=== PATIENT | female | born 1945 | race Caucasian/White ===

== ENCOUNTER 2019-09-30 06:47 | Outpatient (CLI) | payer MEDICARE, OTHER, SELFPAY ==
[2019-09-30 07:44] LABS: Basophils Absolute Auto 0.1 K/mm3 (0.0-0.1); Basophils Percent Auto 0.9 % (0.2-1.2); Eosinophils Absolute Auto 0.3 K/mm3 (0-0.3); Eosinophils Percent Auto 4.8 % (0-4.4); Hematocrit 38.1 % (37.0-47.0); Hemoglobin 12.1 g/dL (12.0-15.0); Immature Granulocyte Absolute 0.02 K/mm3 (0.00-0.031); Immature Granulocyte Percent A 0.3 % (0-0.5); Lymphocytes Absolute Auto 1.39 K/mm3 (0.9-3.2); Lymphocytes Percent Auto 23.7 % (18.3-44.2); Mean Corpuscular HGB Conc 31.8 g/dl (32-36); Mean Corpuscular Hemoglobin 26.9 pg (26-34); Mean Corpuscular Volume 84.7 fl (80-100); Mean Platelet Volume 11.1 fl (7.4-10.4); Monocytes Absolute Auto 0.4 K/mm3 (0.1-0.6); Monocytes Percent Auto 6.8 % (2.6-8.5); Neutrophils Absolute Auto 3.7 K/mm3 (1.3-6.7); Neutrophils Percent Auto 63.5 % (45.5-73.1); Platelet Count Result 225 k/mm3 (150-375); Red Cell Distribution Width 13.5 % (11.5-14.5); White Blood Count 5.9 K/mm3 (4.5-10.0)
[2019-09-30 08:00] LABS: Blood Urea Nitrogen 22 mg/dL (7-17); Calcium 9.1 mg/dL (8.4-10.2); Carbon Dioxide 28 mmol/L (22-30); Chloride 102 mmol/L (98-107); Cholesterol 149 mg/dL (0-200); Estimated Glomerular Filt Rate > 60; Glucose 191 mg/dL (65-105); HDL Direct 49 mg/dL; Potassium 4.4 mmol/L (3.4-5.0); Sodium 139 mmol/L (137-145); Triglycerides 83 mg/dL (<150)
[2019-09-30 08:01] LABS: Hemoglobin A1C 7.8 % (<5.7)
[2019-09-30 08:11] LABS: LDL Cholesterol Direct 91 mg/dL
[2019-09-30 08:33] LABS: Free T4 Free Thyroxine 0.79 ng/mL (0.78-2.19); Vitamin D 25 Hydroxy 49.6 ng/mL
[2019-09-30 10:53] LABS: Creatinine Urine 122.8 mg/dL
[2019-09-30 10:56] LABS: MALB Creatinine Ratio 5.9 mg/g (0-30); Microalbumin Urine Random 7.3 mg/L (0-16.7)
== END 2019-09-30 06:48 | disposition home or self-care (01) ==
PROVIDERS: PCP Internal Medicine; Visit Provider Internal Medicine
DX: I10 Essential (primary) hypertension (principal); E11.9 Type 2 diabetes mellitus without complications; E78.5 Hyperlipidemia, unspecified; E55.9 Vitamin D deficiency, unspecified; Z79.899 Other long term (current) drug therapy
CPT/HCPCS: 36415; 80048; 80061; 82043; 82306; 83036; 84439; 84443; 85025

== ENCOUNTER 2020-02-03 07:30 | Outpatient (CLI) | payer MEDICARE, OTHER, SELFPAY ==
[2020-02-03 08:46] LABS: Blood Urea Nitrogen 20 mg/dL (7-17); Calcium 9.4 mg/dL (8.4-10.2); Carbon Dioxide 30 mmol/L (22-30); Chloride 100 mmol/L (98-107); Cholesterol 133 mg/dL (0-200); Estimated Glomerular Filt Rate > 60; Glucose 141 mg/dL (65-105); HDL Direct 49 mg/dL; Potassium 4.6 mmol/L (3.4-5.0); Sodium 137 mmol/L (137-145); Triglycerides 111 mg/dL (<150)
[2020-02-03 08:57] LABS: LDL Cholesterol Direct 61 mg/dL
== END 2020-02-03 07:31 | disposition home or self-care (01) ==
PROVIDERS: PCP Internal Medicine; Visit Provider Internal Medicine
DX: E78.5 Hyperlipidemia, unspecified (principal); Z79.899 Other long term (current) drug therapy
CPT/HCPCS: 36415; 80048; 80061; 83036; 84439; 84443

== ENCOUNTER 2020-07-07 06:49 | Outpatient (CLI) | payer MEDICARE, OTHER, SELFPAY ==
[2020-07-07 07:21] LABS: Basophils Absolute Auto 0.1 K/mm3 (0.0-0.1); Basophils Percent Auto 0.9 % (0.2-1.2); Eosinophils Absolute Auto 0.2 K/mm3 (0-0.3); Eosinophils Percent Auto 2.6 % (0-4.4); Hematocrit 37.4 % (37.0-47.0); Hemoglobin 11.8 g/dL (12.0-15.0); Immature Granulocyte Absolute 0.03 K/mm3 (0.00-0.031); Immature Granulocyte Percent A 0.4 % (0-0.5); Lymphocytes Absolute Auto 1.82 K/mm3 (0.9-3.2); Lymphocytes Percent Auto 23.7 % (18.3-44.2); Mean Corpuscular HGB Conc 31.6 g/dl (32-36); Mean Corpuscular Volume 82.4 fl (80-100); Mean Platelet Volume 10.9 fl (7.4-10.4); Monocytes Absolute Auto 0.5 K/mm3 (0.1-0.6); Monocytes Percent Auto 6.9 % (2.6-8.5); Neutrophils Percent Auto 65.5 % (45.5-73.1); Platelet Count Result 241 k/mm3 (150-375); Red Blood Count 4.54 M/mm3 (4.2-5.4); Red Cell Distribution Width 14.2 % (11.5-14.5); White Blood Count 7.7 K/mm3 (4.5-10.0)
[2020-07-07 07:34] LABS: Alanine Aminotransferase 48 U/L (4-35); Albumin Level 4.2 g/dL (3.5-5.1); Alkaline Phosphatase 74 U/L (38-126); Anion Gap 7 mmol/L (8-16); Aspartate Amino Transferase 57 U/L (14-36); Bilirubin,Total 0.7 mg/dL (0.2-1.3); Blood Urea Nitrogen 20 mg/dL (7-17); Calcium 9.4 mg/dL (8.4-10.2); Carbon Dioxide 32 mmol/L (22-30); Chloride 99 mmol/L (98-107); Cholesterol 122 mg/dL (0-200); Estimated Glomerular Filt Rate > 60; Glucose 119 mg/dL (65-105); HDL Direct 45 mg/dL; Potassium 4.3 mmol/L (3.4-5.0); Sodium 138 mmol/L (137-145); Triglycerides 126 mg/dL (<150)
[2020-07-07 07:46] LABS: LDL Cholesterol Direct 52 mg/dL
[2020-07-07 07:49] LABS: Hemoglobin A1C 6.5 % (<5.7)
[2020-07-07 08:53] LABS: Free T4 Free Thyroxine 1.12 ng/mL (0.78-2.19)
== END 2020-07-07 06:50 | disposition home or self-care (01) ==
PROVIDERS: PCP Internal Medicine; Visit Provider Internal Medicine
DX: I10 Essential (primary) hypertension (principal); E78.2 Mixed hyperlipidemia; E11.9 Type 2 diabetes mellitus without complications; Z79.4 Long term (current) use of insulin; Z79.899 Other long term (current) drug therapy
CPT/HCPCS: 36415; 80053; 80061; 83036; 84439; 84443; 85025

== ENCOUNTER 2020-08-23 06:56 | Outpatient (CLI) | payer MEDICARE, OTHER, SELFPAY | END 2020-08-23 06:57 | disposition home or self-care (01) | PROVIDERS: PCP Internal Medicine; Visit Provider Internal Medicine | DX: Z01.84 Encounter for antibody response examination (principal) | CPT/HCPCS: 36415; 86769 ==

== ENCOUNTER 2020-12-08 07:15 | Outpatient (CLI) | payer MEDICARE, OTHER, SELFPAY ==
[2020-12-08 07:52] LABS: Hemoglobin A1C 7.8 % (<5.7)
[2020-12-08 07:54] LABS: Alanine Aminotransferase 44 U/L (4-35); Albumin Level 4.3 g/dL (3.5-5.1); Alkaline Phosphatase 75 U/L (38-126); Anion Gap 5 mmol/L (8-16); Aspartate Amino Transferase 56 U/L (14-36); Bilirubin,Total 0.6 mg/dL (0.2-1.3); Blood Urea Nitrogen 17 mg/dL (7-17); Calcium 9.1 mg/dL (8.4-10.2); Carbon Dioxide 31 mmol/L (22-30); Chloride 104 mmol/L (98-107); Cholesterol 119 mg/dL (0-200); Estimated Glomerular Filt Rate > 60; Glucose 122 mg/dL (65-105); HDL Direct 49 mg/dL; Potassium 4.4 mmol/L (3.4-5.0); Sodium 140 mmol/L (137-145); Triglycerides 127 mg/dL (<150)
[2020-12-08 08:07] LABS: LDL Cholesterol Direct 48 mg/dL
[2020-12-08 09:50] LABS: Creatinine Urine 106.7 mg/dL
[2020-12-08 09:54] LABS: MALB Creatinine Ratio 25.3 mg/g (0-30)
[2020-12-08 13:29] LABS: Free T4 Free Thyroxine 1.05 ng/mL (0.78-2.19)
[2020-12-12 03:59] LABS: Vitamin D 1,25 (OH)2 Total 25 pg/mL (18-72); Vitamin D2 1,25 (OH)2 <8 pg/mL; Vitamin D3 1,25 (OH)2 25 pg/mL
== END 2020-12-08 07:16 | disposition home or self-care (01) ==
PROVIDERS: PCP Internal Medicine; Visit Provider Internal Medicine
DX: E11.9 Type 2 diabetes mellitus without complications (principal); Z51.81 Encounter for therapeutic drug level monitoring; Z79.4 Long term (current) use of insulin; E78.2 Mixed hyperlipidemia; E55.9 Vitamin D deficiency, unspecified; I10 Essential (primary) hypertension; Z79.899 Other long term (current) drug therapy
CPT/HCPCS: 36415; 80053; 80061; 82043; 82652; 83036; 84439; 84443

== ENCOUNTER → 2021-04-18 11:10 | Outpatient (CLI) | payer MEDICARE, OTHER, SELFPAY ==
--- NOTE | ~2021-04-18 | MM_ITS ---
EXAMINATION: MM screening [facility] BI w dwight HISTORY: Screening TECHNIQUE: Craniocaudal and mediolateral oblique 3-D tomosynthesis images were obtained and synthetic 2-D images were generated. CAD analysis was submitted and interpreted. COMPARISON: Comparison to multiple prior studies sequentially, with oldest reviewed study dated 01/14. BREAST PARENCHYMAL COMPOSITION: There are scattered areas of fibroglandular density. FINDINGS: There is no evidence of suspicious mass, calcification, or architectural distortion to sugg est malignancy in either breast. There has been no suspicious interval change. IMPRESSION: 1. No mammographic evidence of malignancy. 2. Recommend routine screening mammography in one year. BI-RADS Category 1: Negative Reviewed, dictated and finalized at location A.
== END ==
PROVIDERS: PCP Internal Medicine; Visit Provider Internal Medicine
DX: Z12.31 Encounter for screening mammogram for malignant neoplasm of breast (principal)
CPT/HCPCS: 77063; 77067

== ENCOUNTER 2021-04-26 07:35 | Outpatient (CLI) | payer MEDICARE, OTHER, SELFPAY ==
[2021-04-26 08:50] LABS: Anion Gap 7 mmol/L (8-16); Blood Urea Nitrogen 26 mg/dL (7-17); Calcium 9.5 mg/dL (8.4-10.2); Carbon Dioxide 29 mmol/L (22-30); Chloride 104 mmol/L (98-107); Cholesterol 122 mg/dL (0-200); Estimated Glomerular Filt Rate > 60; Glucose 97 mg/dL (65-110); HDL Direct 54 mg/dL; Potassium 4.4 mmol/L (3.4-5.0); Sodium 140 mmol/L (137-145); Triglycerides 68 mg/dL (<150)
[2021-04-26 09:01] LABS: LDL Cholesterol Direct 43 mg/dL
[2021-04-26 09:10] LABS: Hemoglobin A1C 7.2 % (<5.7)
[2021-04-26 09:27] LABS: Free T4 Free Thyroxine 1.02 ng/mL (0.78-2.19)
[2021-04-26 10:33] LABS: Add Urine Microscopic? YES; Appearance Urine Cloudy (Clear); Bacteria Urine Trace /hpf; Bilirubin Urine Negative (Negative); Blood Urine 1+ (Negative); Color Urine Amber (Yellow); Glucose Urine UA Negative (Negative); Ketones Urine Negative (Negative); Leukocyte Esterase Ur 2+ LEU/UL (NEGATIVE); Mucus Urine Rare /lpf; Nitrate Urine Negative (Negative); Protein Urine 1+ mg/dL (Negative); RBC Urine 21-50 /hpf (0-2); Specific Grav Ur 1.028 (1.001-1.035); Squamous Epithelial Cell Urine Many /hpf (Few); WBC Urine >75 /hpf (0-3)
[2021-04-29 11:08] LABS: Vitamin D 1,25 (OH)2 Total 36 pg/mL (18-72); Vitamin D2 1,25 (OH)2 <8 pg/mL; Vitamin D3 1,25 (OH)2 36 pg/mL
== END 2021-04-26 07:36 | disposition home or self-care (01) ==
PROVIDERS: PCP Internal Medicine; Visit Provider Internal Medicine
DX: E55.9 Vitamin D deficiency, unspecified (principal); R79.89 Other specified abnormal findings of blood chemistry; E11.9 Type 2 diabetes mellitus without complications; Z79.4 Long term (current) use of insulin; E78.2 Mixed hyperlipidemia; Z79.899 Other long term (current) drug therapy; I10 Essential (primary) hypertension
CPT/HCPCS: 36415; 80048; 80061; 81001; 82652; 83036; 84439; 84443

== ENCOUNTER 2021-09-05 10:08 | Outpatient (CLI) | payer MEDICARE, SELFPAY ==
--- NOTE | ~2021-09-05 | XR_ITS ---
EXAMINATION: XR knee RT min 4V EXAM DATE: 09/05/2021 10:27 INDICATION: M25.561 - Pain in right knee, Limping. TECHNIQUE: Right knee frontal, crosstable lateral, orthogonal oblique projections for interpretation . There is no prior study for comparison. FINDINGS: No evidence osteochondral defect or joint body in the right knee joint. There is moderate to severe patellofemoral and medial tibial femoral compartment primary osteoarthritis. No joint eff usion. There are no acute fractures identified. No radiopaque foreign bodies identified. IMPRESSION: Moderate 2 severe right knee osteoarthritis. Reviewed, dictated and finalized at location G. ATIONAL PARAPROFESSIONAL
--- NOTE | ~2021-09-05 | XR_ITS ---
EXAMINATION: XR hip RT min 3V w AP pelvis EXAM DATE: 09/05/2021 10:27 INDICATION: M25.551 - Pain in right hip, no known injury. TECHNIQUE: Right hip frontal, crosstable lateral and 'frog-leg' projections for interpretation. Front al projection pelvis. There is no prior study for comparison. FINDINGS: Smooth hip femoral head contours, no radiographic evidence of avascular necrosis. There ar e no acute pelvic or right hip fractures or dislocations identified. There is no subcutaneous gas. The soft tissue is unremarkable. There are no radiopaque foreign bodies. Mild to moderate symmetri c bilateral hip primary osteoarthritis. IMPRESSION: Mild to moderate bilateral hip osteoarthritis. Reviewed, dictated and finalized at location G. LE CUTTER OPERATOR
--- NOTE | ~2021-09-05 | XR_ITS ---
EXAMINATION: XR lumbar spine 2-3V EXAM DATE: 09/05/2021 10:28 INDICATION: M25.551 - Pain in right hip, LBP, no known recent injury. TECHNIQUE: Lumber spine frontal, lateral, lateral L5-S1 projections for interpretation. There is no prior study for comparison. FINDINGS: Moderate diffuse lumbar disc disease. Severe lower lumbar, moderate upper lumbar facet art hropathy. No acute fractures identified. The vertebral bodies are aligned in the AP dimension. Sacrum , sacroiliac joints, sacral arcuate lines are intact. Paraspinal soft tissue is unremarkable. There are no acute fractures identified. There are cholecystectomy clips. IMPRESSION: Moderate to severe lumbar spondylosis. No acute findings. Reviewed, dictated and finalized at location G. LE FINANCIALS DEVELOPER
== END 2021-09-05 10:09 | disposition home or self-care (01) ==
PROVIDERS: PCP Internal Medicine; Visit Provider Internal Medicine
DX: M25.551 Pain in right hip (principal); M79.604 Pain in right leg; M25.561 Pain in right knee; M54.9 Dorsalgia, unspecified; M47.816 Spondylosis without myelopathy or radiculopathy, lumbar region; M16.0 Bilateral primary osteoarthritis of hip; M17.11 Unilateral primary osteoarthritis, right knee
CPT/HCPCS: 72100; 73502; 73564

== ENCOUNTER 2021-09-06 07:35 | Outpatient (CLI) | payer MEDICARE, SELFPAY ==
[2021-09-06 09:31] LABS: Alanine Aminotransferase 50 U/L (4-35); Albumin Level 4.4 g/dL (3.5-5.1); Alkaline Phosphatase 122 U/L (38-126); Anion Gap 8 mmol/L (8-16); Aspartate Amino Transferase 58 U/L (14-36); Bilirubin,Total 0.7 mg/dL (0.2-1.3); Blood Urea Nitrogen 26 mg/dL (7-17); Calcium 9.6 mg/dL (8.4-10.2); Carbon Dioxide 30 mmol/L (22-30); Chloride 102 mmol/L (98-107); Cholesterol 136 mg/dL (0-200); Estimated Glomerular Filt Rate > 60; Glucose 120 mg/dL (65-110); HDL Direct 50 mg/dL; Potassium 4.7 mmol/L (3.4-5.0); Sodium 140 mmol/L (137-145); Triglycerides 105 mg/dL (<150)
[2021-09-06 09:32] LABS: Hemoglobin A1C 6.1 % (<5.7)
[2021-09-06 09:42] LABS: LDL Cholesterol Direct 54 mg/dL
[2021-09-06 10:10] LABS: Free T4 Free Thyroxine 1.08 ng/mL (0.78-2.19); Vitamin D 25 Hydroxy 69.2 ng/mL
== END 2021-09-06 07:36 | disposition home or self-care (01) ==
PROVIDERS: PCP Internal Medicine; Visit Provider Internal Medicine
DX: E55.9 Vitamin D deficiency, unspecified (principal); E11.9 Type 2 diabetes mellitus without complications; E78.2 Mixed hyperlipidemia; I10 Essential (primary) hypertension; Z79.4 Long term (current) use of insulin; Z79.899 Other long term (current) drug therapy
CPT/HCPCS: 36415; 80053; 80061; 82306; 83036; 84439; 84443

== ENCOUNTER 2022-01-18 07:25 | Outpatient (CLI) | payer MEDICARE, SELFPAY ==
[2022-01-18 08:26] LABS: Alanine Aminotransferase 46 U/L (6-35); Albumin Level 4.1 g/dL (3.5-5.1); Alkaline Phosphatase 96 U/L (38-126); Anion Gap 6 mmol/L (8-16); Aspartate Amino Transferase 54 U/L (14-36); Bilirubin,Total 0.7 mg/dL (0.2-1.3); Blood Urea Nitrogen 24 mg/dL (7-17); Calcium 9.1 mg/dL (8.4-10.2); Carbon Dioxide 28 mmol/L (22-30); Chloride 104 mmol/L (98-107); Cholesterol 133 mg/dL (0-200); Estimated Glomerular Filt Rate > 60; Glucose 84 mg/dL (65-110); HDL Direct 58 mg/dL; Potassium 4.3 mmol/L (3.4-5.0); Sodium 138 mmol/L (137-145); Triglycerides 80 mg/dL (<150)
[2022-01-18 08:37] LABS: LDL Cholesterol Direct 42 mg/dL
[2022-01-18 08:57] LABS: Basophils Percent Auto 0.7 % (0.2-1.2); Eosinophils Absolute Auto 0.1 K/mm3 (0-0.3); Eosinophils Percent Auto 1.4 % (0-4.4); Hematocrit 36.2 % (37.0-47.0); Hemoglobin 10.9 g/dL (12.0-15.0); Immature Granulocyte Absolute 0.01 K/mm3 (0.00-0.031); Immature Granulocyte Percent A 0.2 % (0-0.5); Lymphocytes Absolute Auto 2.08 K/mm3 (0.9-3.2); Lymphocytes Percent Auto 37.3 % (18.3-44.2); Mean Corpuscular HGB Conc 30.1 g/dl (32-36); Mean Corpuscular Hemoglobin 24.1 pg (26-34); Mean Corpuscular Volume 80.1 fl (80-100); Mean Platelet Volume 10.8 fl (7.4-10.4); Monocytes Absolute Auto 0.5 K/mm3 (0.1-0.6); Neutrophils Absolute Auto 2.9 K/mm3 (1.3-6.7); Neutrophils Percent Auto 51.4 % (45.5-73.1); Platelet Count Result 249 k/mm3 (150-375); Red Blood Count 4.52 M/mm3 (4.2-5.4); White Blood Count 5.6 K/mm3 (4.5-10.0)
[2022-01-18 09:51] LABS: Free T4 Free Thyroxine 1.24 ng/mL (0.78-2.19); Vitamin D 25 Hydroxy 64.2 ng/mL
[2022-01-18 10:36] LABS: Creatinine Urine 181.3 mg/dL
[2022-01-18 10:40] LABS: MALB Creatinine Ratio 12.3 mg/g (0-30); Microalbumin Urine Random 22.3 mg/L (0-16.7)
[2022-01-18 11:52] LABS: Hemoglobin A1C 7.2 % (<5.7)
[2022-01-19 13:01] LABS: Iron 61 ug/dL (37-170)
[2022-01-19 13:10] LABS: Percent Iron Saturation 13 % (20-50)
== END 2022-01-18 07:26 | disposition home or self-care (01) ==
LOC: ANHLAB 07:29
PROVIDERS: PCP Internal Medicine; Visit Provider Internal Medicine
DX: E55.9 Vitamin D deficiency, unspecified (principal); I10 Essential (primary) hypertension; Z51.81 Encounter for therapeutic drug level monitoring; Z79.899 Other long term (current) drug therapy; Z13.29 Encounter for screening for other suspected endocrine disorder; E78.2 Mixed hyperlipidemia; Z79.4 Long term (current) use of insulin; E11.9 Type 2 diabetes mellitus without complications
CPT/HCPCS: 36415; 80053; 80061; 82043; 82306; 82728; 83036; 83540; 83550; 84439; 84443; 85025

== ENCOUNTER 2022-01-19 07:35 | Outpatient (NON) | payer MEDICARE, SELFPAY | END 2022-01-19 07:36 | disposition home or self-care (01) | LOC: ANHLAB 07:36 | PROVIDERS: PCP Internal Medicine; Visit Provider Internal Medicine | DX: D64.9 Anemia, unspecified (principal) | CPT/HCPCS: 36415; 82728 ==

== ENCOUNTER 2022-04-20 00:38 | Day surgery (SDC) | payer MEDICARE, SELFPAY ==
[2022-04-07 13:59] VITALS: BMI 38.9
[2022-04-20 08:41] VITALS: BP 164/70; PULSE 83; RESP 20; TEMP 36.7; O2SAT 99
--- NOTE | 2022-04-20 08:53 | PM.IMHP ---
H&P: HPI History of Present Illness Date/Time: 04/20/22 08:53 Chief Complaint: Iron deficiency anemia. Narrative: This is a 76-year-old white female patient presents for colonoscopy an EGD. Patient found to have iron deficiency anemia. Patient's past history is significant for colon polyps [place] [address] Connelly. Patient reports current bowel movements are normal. She does have rather frequent ongoing nose bleeds. She has scheduled appointment to see ENT evaluation soon. Patient presents today for GI endoscopy to exclude GI contributing cause of anemia. Review of Systems Review of Systems: Review of systems noncontributory. FOR[facility]LY [facility] Past Medical History Medical History Abnormal finding of blood chemistry Body mass index (BMI) 40.0-44.9, adult Colon cancer screening COVID-19 DM type 2 (diabetes mellitus, type 2) Encounter for Medicare annual wellness exam Encounter for routine adult health examination without abnormal findings Exposure to 2019 novel coronavirus Follow up Gingivitis Gum disease Hearing loss History of arthritis History of asthma History of COVID-19 History of diabetes mellitus Obesity Osteoarthritis of right knee Right knee pain Surgical History Surgical History History of cholecystectomy History of hysterectomy Hx of tonsillectomy Family History Family History Sibling Family history of malignant neoplasm of breast in first degree relative Diabetes mellitus Mother Family history of malignant neoplasm of breast in first degree relative Diabetes mellitus Family history of diabetes mellitus in first degree relative Father Diabetes mellitus Family history of diabetes mellitus in first degree relative Other Family history of arthritis Family history of seizure disorder Hypertension Social History Social History Smoking status: Never smoker Second hand tobacco smoke exposure: No Alcohol intake: never Drinks per week: 0 Substance use type: does not use Living arrangements: alone Spiritual care concerns: No Meds Home Medications and Allergies Home Medications Medication Instructions Recorded Confirmed Type multivitamin 1 tablet PO DAILY 10/08/19 04/07/22 History cholecalciferol (vitamin D3) 25 1,000 unit PO DAILY 10/09/19 04/07/22 History mcg (1,000 unit) capsule fexofenadine 180 mg tablet 180 mg PO DAILY 02/12/20 04/07/22 History (Annemarie Allergy) flash glucose sensor (FreeStyle #6 ea 09/14/21 02/23/22 Rx Diaz 14 Day Sensor kit) pen needle, diabetic 32 gauge x #200 ea 09/19/21 02/23/22 Rx 1/6 (NovoFine Plus) insulin lispro 200 unit/mL (3 mL) See Rx Instructions .Route 10/03/21 04/07/22 Rx subcutaneous pen (Humalog KwikPen .COMPLEX #12 mL U-200 Insulin) ferrous sulfate 325 mg (65 mg 325 mg PO BID #60 tabs 01/25/22 04/07/22 Rx iron) tablet (Feosol) insulin detemir U-100 100 unit/mL 38 unit (0.38 mL) subcut .every 12 03/06/22 04/07/22 Rx (3 mL) subcutaneous pen (Levemir hours 30 days #30 mL FlexTouch U-100 Insulin) lisinopril 10 See Rx Instructions .Route 03/06/22 04/07/22 Rx mg-hydrochlorothiazide 12.5 mg .COMPLEX #45 tabs tablet metformin 1,000 mg tablet See Rx Instructions .Route 03/06/22 04/07/22 Rx .COMPLEX #225 tabs fluticasone propionate 50 2 spray intranasal PRN PRN Allergy 04/07/22 04/07/22 History mcg/actuation nasal Symptoms spray,suspension omega-3 fatty acids 1,000 mg 1,000 mg PO DAILY 04/07/22 04/07/22 History capsule rosuvastatin 10 mg tablet 10 mg PO DAILY 04/07/22 04/07/22 History Allergies Allergy/AdvReac Type Severity Reaction Status Date / Time erythromycin base Allergy Unknown unknown Verified 04/20/22 08:37 COVID-19 vaccine, [id number]
[2022-04-20] MEDS: LACTATED RINGERS 1,000 ML 150 ML IV CONT (08:57)
[2022-04-20 09:03] LABS: Glucose Point of Care 136 mg/dl (65-105)
--- NOTE | 2022-04-20 09:11 | WPDANESEPPF ---
Anes - Initial Pre Proc Eval Procedure: Operation Date: 04/20/22 09:45 Proposed Procedures p Esophagogastroduodenoscopy & Colonoscopy - Sunil Dennis MD Date/Time: 04/20/22 09:11 Surgeon: Sunil Dennis MD Pre Op Diagnosis: MARIO Patient Data Age: 76 Gender: F Height: 1.7 m Weight: 115.2 kg Last Vital Signs Temp 98.1 F 04/20/22 08:41 Pulse 83 04/20/22 08:41 Resp 20 04/20/22 08:41 BP 164/70 H 04/20/22 08:41 Pulse Ox 99 04/20/22 08:41 O2 Del Method Room Air 04/20/22 08:41 Allergies Allergy/AdvReac Type Severity Reaction Status Date / Time erythromycin base Allergy Unknown unknown Verified 04/20/22 08:37 COVID-19 vaccine, [id number] AdvReac Mild Hives Verified 04/20/22 08:37 (AstraZ Home Medications Medication Instructions Recorded Confirmed Type multivitamin 1 tablet PO DAILY 10/08/19 04/07/22 History cholecalciferol (vitamin D3) 25 1,000 unit PO DAILY 10/09/19 04/07/22 History mcg (1,000 unit) capsule fexofenadine 180 mg tablet 180 mg PO DAILY 02/12/20 04/07/22 History (Annemarie Allergy) flash glucose sensor (FreeStyle #6 ea 09/14/21 02/23/22 Rx Diaz 14 Day Sensor kit) pen needle, diabetic 32 gauge x #200 ea 09/19/21 02/23/22 Rx 08/25 (NovoFine Plus) insulin lispro 200 unit/mL (3 mL) See Rx Instructions .Route 10/03/21 04/07/22 Rx subcutaneous pen (Humalog KwikPen .COMPLEX #12 mL U-200 Insulin) ferrous sulfate 325 mg (65 mg 325 mg PO BID #60 tabs 01/25/22 04/07/22 Rx iron) tablet (Feosol) insulin detemir U-100 100 unit/mL 38 unit (0.38 mL) subcut .every 12 03/06/22 04/07/22 Rx (3 mL) subcutaneous pen (Levemir hours 30 days #30 mL FlexTouch U-100 Insulin) lisinopril 10 See Rx Instructions .Route 03/06/22 04/07/22 Rx mg-hydrochlorothiazide 12.5 mg .COMPLEX #45 tabs tablet metformin 1,000 mg tablet See Rx Instructions .Route 03/06/22 04/07/22 Rx .COMPLEX #225 tabs fluticasone propionate 50 2 spray intranasal PRN PRN Allergy 04/07/22 04/07/22 History mcg/actuation nasal Symptoms spray,suspension omega-3 fatty acids 1,000 mg 1,000 mg PO DAILY 04/07/22 04/07/22 History capsule rosuvastatin 10 mg tablet 10 mg PO DAILY 04/07/22 04/07/22 History Laboratory Tests 04/20/22 08:56 POC Capillary Glucose 136 mg/dl H mg/dl (65-105) Patient hx anesthesia problems: none Family hx anesthesia problems: none Results Review: All pre-operative results and documents have been reviewed as part of the pre-operative evaluation. [facility] Past Medical History Medical History Abnormal finding of blood chemistry Body mass index (BMI) 40.0-44.9, adult Colon cancer screening COVID-19 DM type 2 (diabetes mellitus, type 2) Encounter for Medicare annual wellness exam Encounter for routine adult health examination without abnormal findings Exposure to 2019 novel coronavirus Follow up Gingivitis Gum disease Hearing loss History of arthritis History of asthma History of COVID-19 History of diabetes mellitus Obesity Osteoarthritis of right knee Right knee pain Surgical History Surgical History History of cholecystectomy History of hysterectomy Hx of tonsillectomy Family History Family History Sibling Family history of malignant neoplasm of breast in first degree relative Diabetes mellitus Mother Family history of malignant neoplasm of breast in first degree relative Diabetes mellitus Family history of diabetes mellitus in first degree relative Father Diabetes mellitus Family history of diabetes mellitus in first degree relative Other Family history of arthritis Family history of seizure disorder Hypertension Social History Social History Smoking status: Never smoker Secon
--- NOTE | 2022-04-20 09:44 | SUR.OPER ---
EGD started at 921 and ended at 922. Colonoscopy started at 929 and ended at 942.
[2022-04-20 09:47] VITALS: BP 107/58; PULSE 80; RESP 25; O2SAT 97
[2022-04-20 09:57] VITALS: BP 104/67; PULSE 75; RESP 24; O2SAT 97
[2022-04-20 09:59] LABS: Glucose Point of Care 127 mg/dl (65-105)
[2022-04-20 10:07] VITALS: BP 131/68; PULSE 73; RESP 23; O2SAT 97
== END 2022-04-20 10:15 | disposition home or self-care (01) ==
PROVIDERS: PCP Internal Medicine; Visit Provider Internal Medicine Gastroenterology
PROC: 0DJ08ZZ Inspection of Upper Intestinal Tract, Via Natural or Artificial Opening Endoscopic (ICD-10-PCS; CPT 43235; principal; 2022-04-20 09:45)
DX: D50.9 Iron deficiency anemia, unspecified (principal); D12.2 Benign neoplasm of ascending colon; K64.8 Other hemorrhoids; K57.30 Diverticulosis of large intestine without perforation or abscess without bleeding; R04.0 Epistaxis; E11.9 Type 2 diabetes mellitus without complications; Z79.4 Long term (current) use of insulin; Z79.84 Long term (current) use of oral hypoglycemic drugs; E66.01 Morbid (severe) obesity due to excess calories; Z68.39 Body mass index [BMI] 39.0-39.9, adult
CPT/HCPCS: 45380; 43235; 82948; 88305; J2704; J7120

== ENCOUNTER 2022-06-06 08:28 | Outpatient (CLI) | payer MEDICARE, SELFPAY ==
[2022-06-06 08:43] LABS: Basophils Percent Auto 0.9 % (0.2-1.2); Eosinophils Absolute Auto 0.1 K/mm3 (0-0.3); Eosinophils Percent Auto 2.2 % (0-4.4); Hematocrit 38.2 % (37.0-47.0); Hemoglobin 12.2 g/dL (12.0-15.0); Immature Granulocyte Absolute 0.01 K/mm3 (0.00-0.031); Immature Granulocyte Percent A 0.2 % (0-0.5); Lymphocytes Absolute Auto 1.64 K/mm3 (0.9-3.2); Lymphocytes Percent Auto 35.8 % (18.3-44.2); Mean Corpuscular HGB Conc 31.9 g/dl (32-36); Mean Corpuscular Hemoglobin 27.3 pg (26-34); Mean Corpuscular Volume 85.5 fl (80-100); Mean Platelet Volume 10.2 fl (7.4-10.4); Monocytes Absolute Auto 0.4 K/mm3 (0.1-0.6); Monocytes Percent Auto 8.1 % (2.6-8.5); Neutrophils Absolute Auto 2.4 K/mm3 (1.3-6.7); Neutrophils Percent Auto 52.8 % (45.5-73.1); Platelet Count Result 201 k/mm3 (150-375); Red Blood Count 4.47 M/mm3 (4.2-5.4); Red Cell Distribution Width 14.4 % (11.5-14.5); White Blood Count 4.6 K/mm3 (4.5-10.0)
[2022-06-06 09:26] LABS: Anion Gap 11 mmol/L (8-16); Blood Urea Nitrogen 18 mg/dL (7-17); Calcium 9.5 mg/dL (8.4-10.2); Carbon Dioxide 30 mmol/L (22-30); Chloride 101 mmol/L (98-107); Cholesterol 136 mg/dL (0-200); Estimated Glomerular Filt Rate > 60; Glucose 117 mg/dL (65-110); HDL Direct 51 mg/dL; Potassium 4.1 mmol/L (3.4-5.0); Sodium 142 mmol/L (137-145); Triglycerides 101 mg/dL (<150)
[2022-06-06 09:35] LABS: Iron 69 ug/dL (37-170)
[2022-06-06 09:37] LABS: LDL Cholesterol Direct 57 mg/dL
[2022-06-06 09:44] LABS: Percent Iron Saturation 17 % (20-50)
[2022-06-06 09:53] LABS: Free T4 Free Thyroxine 1.13 ng/mL (0.78-2.19)
== END 2022-06-06 08:29 | disposition home or self-care (01) ==
PROVIDERS: PCP Internal Medicine; Visit Provider Internal Medicine
DX: Z79.899 Other long term (current) drug therapy (principal); Z79.4 Long term (current) use of insulin; I10 Essential (primary) hypertension; E78.2 Mixed hyperlipidemia; D64.9 Anemia, unspecified; E11.9 Type 2 diabetes mellitus without complications
CPT/HCPCS: 36415; 80048; 80061; 82728; 83036; 83540; 83550; 84439; 84443; 85025

== ENCOUNTER → 2022-06-27 12:33 | Outpatient (CLI) | payer MEDICARE, SELFPAY ==
--- NOTE | ~2022-06-27 | MM_ITS ---
EXAMINATION: MM screening [facility] BI w dwight HISTORY: Screening mammogram TECHNIQUE: Craniocaudal and mediolateral oblique 3-D tomosynthesis images were obtained and synthetic 2-D images were generated. CAD analysis was submitted and interpreted. COMPARISON: 04/18/2021, 05/27/2019 bilateral screening mammogram examinations 04/19/2017 bilateral diagnostic mammogram 04/10/2017 bilateral screening mammogram BREAST PARENCHYMAL COMPOSITION: There are scattered areas of fibroglandular density. FINDINGS: Possible small developing density in the anterior inner left breast on CC projection. Diagn ostic left mammogram is recommended, with ultrasound if required. Otherwise no interval suspicious mass, architectural distortion, malignant calcification, skin thicke jaspreet or retraction is detected. Scattered bilateral benign calcifications. IMPRESSION: 1. Possible small developing density in the anterior inner left breast on CC projection. 2. Diagnostic left mammogram is recommended, with ultrasound if required BI-RADS Category 0: Incomplete: Needs additional imaging evaluation. Reviewed, dictated and finalized at location A. OGEN PLANT OPERATIONS MANAGER IMPRESSION: 1. Possible small developing density in the anterior inner left breast on CC pr ojection. 2. Diagnostic left mammogram is recommended, with ultrasound if required BI-RADS Category 0: Incomplete: Needs additional imaging evaluation.
== END ==
PROVIDERS: PCP Internal Medicine; Visit Provider Internal Medicine
DX: Z12.31 Encounter for screening mammogram for malignant neoplasm of breast (principal); R92.8 Other abnormal and inconclusive findings on diagnostic imaging of breast
CPT/HCPCS: 77063; 77067

== ENCOUNTER → 2022-07-18 12:44 | Outpatient (CLI) | payer MEDICARE, SELFPAY ==
--- NOTE | ~2022-07-18 | MM_ITS ---
EXAMINATION: MM diagnostic adri LT w dwight HISTORY: Left breast asymmetry on screening mammogram TECHNIQUE: Additional 3-D tomosynthesis images of the left breast were performed and synthetic 2-D im ages were generated. CAD analysis was submitted and interpreted. COMPARISON: 06/27/2022, 04/18/2021, 05/27/2019 FINDINGS: There is a return to baseline fibroglandular appearance with spot compression of the left b reast in the area questioned on screening mammogram. IMPRESSION: 1. No mammographic evidence of malignancy. 2. Recommend routine screening mammography in one year. BI-RADS Category 1: Negative Reviewed, dictated and finalized at location A. RANCE AUDITOR
== END ==
PROVIDERS: PCP Internal Medicine; Visit Provider Internal Medicine
DX: R92.8 Other abnormal and inconclusive findings on diagnostic imaging of breast (principal)
CPT/HCPCS: 77061; 77065; G0279

== ENCOUNTER 2024-03-24 07:40 | Outpatient (CLI) | payer MEDICARE, SELFPAY | END 2024-03-24 07:41 | disposition home or self-care (01) | LOC: ANHAUDIO 07:41 | PROVIDERS: PCP Internal Medicine; Visit Provider Internal Medicine | DX: H90.3 Sensorineural hearing loss, bilateral (principal) | CPT/HCPCS: 92557; 92567 ==

== ENCOUNTER 2024-04-07 10:09 | Outpatient (CLI) | payer MEDICARE, SELFPAY ==
--- NOTE | ~2024-04-07 | MM_ITS ---
EXAMINATION: MM screening [facility] BI w dwight HISTORY: Screening TECHNIQUE: Craniocaudal and mediolateral oblique 3-D tomosynthesis images were obtained and synthetic 2-D images were generated. CAD analysis was submitted and interpreted. COMPARISON: Comparison to multiple prior studies sequentially, with oldest reviewed study dated 04/10. BREAST PARENCHYMAL COMPOSITION: Not dense: There are scattered areas of fibroglandular density. FINDINGS: There is no evidence of suspicious mass, calcification, or architectural distortion to sugg est malignancy in either breast. There has been no suspicious interval change. IMPRESSION: 1. No mammographic evidence of malignancy. 2. Recommend routine screening mammography in one year. BI-RADS Category 1: Negative Reviewed, dictated and finalized at location B.
== END 2024-04-07 10:10 ==
LOC: MICIMG 10:10
PROVIDERS: PCP Internal Medicine; Visit Provider Internal Medicine
DX: Z12.31 Encounter for screening mammogram for malignant neoplasm of breast (principal)
CPT/HCPCS: 77063; 77067

== ENCOUNTER 2025-04-09 07:24 | Outpatient (CLI) | payer MEDICARE, SELFPAY ==
--- NOTE | ~2025-04-09 | MM_ITS ---
EXAMINATION: MM screening [facility] BI w dwight HISTORY: Screening mammogram, family history of breast cancer in her mother and sister. TECHNIQUE: Craniocaudal and mediolateral oblique 3-D tomosynthesis images were obtained and synthetic 2-D images were generated. CAD analysis was submitted and interpreted. COMPARISON: 04/07/2024, 06/27/2022, 04/18/2021 BREAST PARENCHYMAL COMPOSITION:Not Dense. There are scattered areas of fibroglandular density. FINDINGS: No suspicious mass, calcification, or architectural distortion are identified in either breast to suggest malignancy. There has been no suspicious interval change. IMPRESSION: No mammographic evidence of malignancy. Recommend routine screening mammography in one year. BI-RADS Category 1: Negative Reviewed, dictated and finalized at location .
== END 2025-04-09 07:25 | disposition home or self-care (01) ==
LOC: MICIMG 07:24
PROVIDERS: PCP Internal Medicine; Visit Provider Internal Medicine
DX: Z12.31 Encounter for screening mammogram for malignant neoplasm of breast (principal)
CPT/HCPCS: 77063; 77067

== ENCOUNTER 2025-07-06 00:22 | Day surgery (SDC) | payer MEDICARE, SELFPAY ==
[2025-06-24 15:34] VITALS: BMI 39.3
--- NOTE | 2025-06-24 15:52 | PC.NURSE ---
[facility] has started construction of its new state of the art ER which will open Spring 2026. With this, we anticipate parking may be a challenge for some our surgical patients and families. Parking spaces are limited but are available for all Surgical, obstetrics, and ER patients sharing this lot. If you arrive and find you are having a hard time finding a parking space, please note that we understand the challenges, please drive around the hospital and park near Hospital Entrance 1. When you enter this entrance, you can ask a volunteer to direct or take you back to the surgical waiting area to check in. We appreciate everyone?s understanding of these expected challenges while we build for your future. Report to the Outpatient Waiting Room, entrance under the green pavilion located off [address], at time ___11:00AM___ on date __07/06/25___. Planned Procedure Time: __1:00PM .? Time changes happen often and if your time is changed the preop area will call you the afternoon before. - You and your visitor will be asked to self-screen and do not enter if you have any COVID symptoms. Please call surgeon if you need to reschedule. - A mask is optional within the hospital at this time. Patients may have clear liquids (water, carbonated beverages, clear teas, apple juice) until 3 hours prior to surgery (10:00AM) with a maximum of 20 ounces. - No food from midnight until time of surgery and no smoking, or chewing tobacco (or any form of nicotine). No chewing gum, candy or mints. Take only the following medications with a SIP of water on the morning of surgery: ___1/2 DOSE AM INSULIN=_40 UNITS TRESIBA DO NOT STOP ANY OF YOUR OTHER PRESCRIPTION MEDICATIONS PRIOR TO SURGERY EXCEPT THE FOLLOWING Hold all vitamins and supplements for 3 days per anesthesiologist.--LAST DOSE 07/02/25 Please no make-up, nail dutch, hairspray, perfume, deodorant, or body powder the day of surgery.? No jewelry (including any body piercings) or valuables the day of surgery, leave them at home.? Please take a shower or bath the night before, or the morning of, surgery with an antibacterial soap.? Wear comfortable, loose fitting clothing.? - Jewelry must be removed prior to entering the operating room.? Rings and piercings that are not removed may be cut off. - The hospital will not accept responsibility for valuables.? - Please leave all valuables, including medications, at home the day of surgery. If you are going home after surgery, a licensed driver trainer must drive you home.? - NO public transportation without another adult if you receive anesthesia. - We recommend that an adult stay with you for 24 hours following discharge. - We also recommend that you do not drive, make important decision, drink alcoholic beverages, or take any drugs that were not prescribed by your health care provider for at least 24 hours after your discharge time. Follow any additional instructions given to you from your surgeon. Telephone instructions given to ___PATIENT and asked if any additional questions and then verbalized understanding. Patient advised to call surgeon office or pre surgery nurse liaison [phone] if any additional questions.
[2025-07-06] VITALS (7 sets, daily range): BP systolic 120–166; BP diastolic 60–88; PULSE 58–76; RESP 12–18; TEMP 36.4; O2SAT 99–100; BMI 39.6
--- OUTSIDE RECORDS SUMMARY | 2025-07-06 00:26 | XMS_ITS | Clinical Summary ---
Author Organization [facility] Address [address] [place] [address] Care Team Providers Care Naphtha Washing System Operator Name Role Phone Ramiro Newman MD Primary Care Provider [phone] Encounters Date Type Department Care Team Description 06/25/2025 11:12 AM ELECTRIC RAZOR ASSEMBLER - 06/25/2025 11:59 PM ELECTRIC RAZOR ASSEMBLER Hospital Encounter [facility] [address] [place] [address] Jimi Oscar MD Discharge Disposition: Home or Self Care (Routine Discharge) 06/25/2025 Travel from Last 3 Months Social History Tobacco Use Types Packs/Day Years Used Date Smoking Tobacco: Never Assessed Comments Unknown Sex and Gender Information Value Date Recorded Sex Assigned at Female 06/22/2025 9:23 AM ELECTRIC RAZOR ASSEMBLER Legal Sex Female 2:42 PM ELECTRIC RAZOR ASSEMBLER Gender Identity Not on file Sexual Orientation Not on file Plan of Treatment Health Maintenance Due Date Last Done Comments Kidney Health Evaluation 1945 Hemoglobin A1C 1945 Lipid Panel 1945 Diabetes: Retinopathy Eye Exam 1963 DTaP, Tdap and Td Vaccines ( 1 - Tdap) 1964 Zoster Vaccines (1 of 2) 1995 Annual Medicare Wellness Visit 2010 Dexa Scan (General) 2010 RSV Immunization or 60+ Years (1 - 1-dose 75+ series) 2020 COVID-19 Vaccine (4 - 2024-2 6 season) 2025 11/09/2020, 10/19/2020, 10/17/2020 Influenza Adult (#1) 2025 Pneumococcal Vaccine: 50+ Years Completed 09/30/2018, 09/25/2017 Hepatitis A Vaccines Aged Out No long er eligible based on patient's age to complete this topic Meningococcal B Vaccine Aged Out No l onger eligible based on patient's age to complete this topic Meningococcal Vaccine Aged Out No lisa tu eligible based on patient's age to complete this topic RSV Immunizations Under 20 Months Aged Out No longer eligible b ased on patient's age to complete this topic Procedures Procedure Name Priority Date/Time Associated Diagnosis Comments CT HEART SCREEN CALCIUM SCORE PROMO Routine 06/25/2025 11:26 AM ELECTRIC RAZOR ASSEMBLER Screening for ischemic heart disease (IHD) from Last 3 Months Results * CT HEART SCREEN CALCIUM SCORE PROMO (06/25/2025 11:26 AM ELECTRIC RAZOR ASSEMBLER) Anatomical Region Laterality Modality Chest Computed Tomogra phy 06/29/2025 7:02 AM ELECTRIC RAZOR ASSEMBLER Impressions 06/29/2025 7:02 AM ELECTRIC RAZOR ASSEMBLER =====IMPRESSION:===== Total Score: 30 Mild plaque, moderate risk, low likelihood of significant stenosis (<50%). Ordered By: JIMI OSCAR Interpreted By: Mahendra Martinez MD, 06/29/2025 7:02 AM Narrative 06/29/2025 7:02 AM ELECTRIC RAZOR ASSEMBLER [address] [address] EXAMINATION: Multislice Helical CT Coronary Calcium Scoring REASON FOR EXAM: Screening for heart disease COMPARISON: None TECHNIQUE: Multislice helical CT images of the proximal coronary arteries with a computer generated calcification score. A dose lowering technique was used for this procedure, which may include, but is not limited to, dose reduction technique, automated exposure control, iterative reconstruction, ALARA (As Low As Reasonably Achievable), or Image Gently techniques. Results: Left main: 0 LAD: 19 Circumflex: 11 Right coronary: 0 Total Score: 30 Comments: There is no mediastinal adenopathy, and there are no pulmonary nodules in the visualized portions of the chest. Calcium score guidelines: Total Score* Calcium Plaque [place] *Risk *Probability of significant CAD 0 No Plaque Very Low Very unlikely 1-10 Minimal Plaque Low Unlikely 11-100 Mild Plaque Moderate Low likelihood of significant stenosis <50% 101-400 Moderate Plaque Moderately High Moderate likelihood of significant stenosis (>50%) Over 400 Extensive Plaque High High likelihood of significant stenosis (>50%) The amount of coronary artery calcification correlates with the severity of coronary atherosclerosis and the probability of future significant event. Calcification is not site specific for stenosis and does not identify non-calcified atherosclerotic plaque, but rather indicates the extent of atherosclerosis in the coronary arteries overall. The score may be used as an indicator for risk factor modification or additional cardiac testing. Significant change in calcium score over time may be indicative of subsequent disease development or useful as a benchmark to assess preventative programs. Procedure Note Mahendra Martinez MD - 06/29/2025 [place] [id number] EXAMINATION: Multislice Helical CT Coronary Calcium Scoring REASON FOR EXAM: Screening for heart disease COMPARISON: None TECHNIQUE: Multislice helical CT images of the proximal coronary arterieswith a computer generated calcification score. A dose lowering techniquewas used for this procedure, which may include, but is not limited to,dose reduction technique, automated exposure control, iterativereconstruction, ALARA (As Low As Reasonably Achievable), or Image Gentlytechniques. Results: Left main: 0 LAD: 19 Circumflex: 11 Right coronary: 0 Total Score: 30 Comments: There is no mediastinal adenopathy, and there are no pulmonarynodules in the visualized portions of the chest. Calcium score guidelines: Total Score* Calcium Plaque [place] *Risk *Probability ofsignificant CAD 0 No Plaque Very LowVery unlikely 1-10 Minimal Plaque LowUnlikely 11-100 Mild Plaque ModerateLow likelihood of significant stenosis <50% 101-400 Moderate Plaque Moderately HighModerate likelihood of significant stenosis (>50%) Over 400 Extensive Plaque HighHigh likelihood of significant stenosis (>50%) The amount of coronary artery calcification correlates with the severityof coronary atherosclerosis and the probability of future significantevent. Calcification is not site specific for stenosis and does notidentify non-calcified atherosclerotic plaque, but rather indicates theextent of atherosclerosis in the coronary arteries overall. The score may be used as an indicator for risk factor modification oradditional cardiac testing. Significant change in calcium score over timemay be indicative of subsequent disease development or useful as abenchmark to assess preventative programs. =====IMPRESSION:===== Total Score: 30 Mild plaque, moderate risk, low likelihood of significantstenosis (<50%). Ordered By: JIMI OSCAR Interpreted By: Mahendra Martinez MD, 06/29/2025 7:02 AM us Jimi Oscar MD CT Final Res ult from Last 3 Months Insurance [facility] MEDICARE [facility] Care Teams Naphtha Washing System Operator Relationship Specialty Start Date End Date Ramiro Newman MD [address] [id number] PCP - General INTERNAL MEDICINE 09/27/21
[2025-07-06] MEDS: LACTATED RINGERS 1,000 ML 30 ML IV CONT (11:40)
--- NOTE | 2025-07-06 11:45 | WPDHPUPDATE1 ---
History and Physical Update Update Date/Time: 07/06/25 11:45 History and Physical has been reviewed, including an updated exam of the patient. There are NO changes in the patient's condition. Risks, benefits, and alternatives have been discussed and questions answered. Patient agrees to proceed with procedure.
--- NOTE | 2025-07-06 12:06 | WPDANESEPPF ---
Anes - Initial Pre Proc Eval Procedure: Operation Date: 07/06/25 13:00 Proposed Procedures p Bilateral Nasal Endoscopy with Cautery - Mateo Payne MD Date/Time: 07/06/25 12:06 Surgeon: Mateo Payne MD Pre Op Diagnosis: epistaxsis Patient Data Age: 80 Gender: F Height: 1.7 m Weight: 114 kg Allergies Allergy/AdvReac Type Severity Reaction Status Date / Time erythromycin base Allergy Unknown RASH, Verified 07/02/25 10:33 SWELLING COVID-19 vaccine, AZD-1222 AdvReac Mild RASH, BUT Verified 07/02/25 10:33 (AstraZ STILL GETS COVID VACCINE Home Medications ?Medication ?Instructions ?Recorded ?Confirmed ?Type cholecalciferol (vitamin D3) 25 1,000 unit PO DAILY 10/09/19 07/02/25 History mcg (1,000 unit) capsule pen needle, diabetic 32 gauge x #200 ea 09/19/21 07/02/25 Rx 1/6 (NovoFine Plus) omega-3 fatty acids 1,000 mg 3,000 mg PO DAILY 04/07/22 07/02/25 History capsule flash glucose sensor (FreeStyle #6 ea 01/17/24 07/02/25 Rx Diaz 14 Day Sensor kit) lisinopril 20 2 tablet PO DAILY #180 tabs 02/09/25 07/02/25 Rx mg-hydrochlorothiazide 12.5 mg tablet metformin 1,000 mg tablet See Rx Instructions .Route 02/09/25 07/02/25 Rx .COMPLEX #225 tabs rosuvastatin 10 mg tablet See Rx Instructions .Route 02/09/25 07/02/25 Rx .COMPLEX #90 tabs ferrous sulfate 325 mg (65 mg 325 mg PO DAILY 06/24/25 07/02/25 History iron) tablet insulin lispro 200 unit/mL (3 mL) See Rx Instructions .Route 06/25/25 07/02/25 Rx subcutaneous pen (Humalog KwikPen .COMPLEX #6 mL U-200 Insulin) insulin degludec 200 unit/mL (3 70 unit subcut DAILY 07/02/25 07/02/25 History mL) subcutaneous pen (Tresiba FlexTouch U-200 insulin) Patient hx anesthesia problems: none Family hx anesthesia problems: none Results Review: All pre-operative results and documents have been reviewed as part of the pre-operative evaluation. [facility] Past Medical History Medical History BMI greater than 40 UTI (urinary tract infection) Degenerative arthritis of knee, bilateral DJD (degenerative joint disease) Pedal edema Hospital discharge follow-up Breast asymmetry BMI 39.0-39.9,adult Bacteremia Follow up Abnormal finding of blood chemistry Osteoarthritis of right knee History of diabetes mellitus History of arthritis History of asthma Right knee pain History of COVID-19 Colon cancer screening COVID-19 Hearing loss Encounter for Medicare annual wellness exam Exposure to 2019 novel coronavirus Body mass index (BMI) 40.0-44.9, adult Gum disease Gingivitis Encounter for routine adult health examination without abnormal findings DM type 2 (diabetes mellitus, type 2) Obesity Surgical History Surgical History Hx of tonsillectomy History of hysterectomy History of cholecystectomy Family History Family History Sibling Family history of malignant neoplasm of breast in first degree relative Diabetes mellitus Mother Family history of malignant neoplasm of breast in first degree relative Diabetes mellitus Family history of diabetes mellitus in first degree relative Father Diabetes mellitus Family history of diabetes mellitus in first degree relative Breast cancer Sibling Breast cancer Other Family history of arthritis Family history of seizure disorder Hypertension Social History Social History Smoking status: Never smoker Second hand tobacco smoke exposure: No Alcohol intake: never Drinks per week: 0 Substance use type: does not use Lack of Transportation: No Lack of Food: Never True Current Housing: I Have Housing Concerned About Future Housing: No Difficulty Paying Gas/Electric Bills: No Difficulty Paying for Meds: No Currently Unemployed: No Education: High School Diploma/GED Difficulty w/ Childcare or Family Care: No Living arrangements: alone Additional living arrangements comments: BROTHER, SON, GRANDCHILDREN, GRANDDAUGHTER'S BOYFRIEND Occupation/Education: retired Gender identity (if verbalized by the patient): Female Spiritual care concerns: No Anes - Eval Final PreProcedure Day of Procedure 07/06/25 12:06 Patient weight: morbidly obese Heart: regular rate and rhythm Lungs: clear to auscultation Airway: Mallampati scale class III Neurological: alert and oriented Last oral intake: >/= 8 hours ASA classification: III Emergent: no Anesthetic plan: proceed Anesthesia type and monitoring: general and standard monitoring Results Review: All pre-operative results and documents have been reviewed as part of the pre-operative evaluation. Informed Consent: The patient's anesthetic plan and its attendant risks and benefits were discussed with the patient/family/POA. Questions were solicited and answers provided to the satisfaction of the patient/family/POA.
[2025-07-06] MEDS: ACETAMINOPHEN 500 MG TABLET 1000 MG PO (13:04)
[2025-07-06] MEDS: ceFAZolin 2 GM in SODIUM CHLORIDE 0.9% IV 50 ML 100 ML IVPB (13:12)
--- NOTE | 2025-07-06 13:46 | W.PM.PROC2 ---
Procedure Note - Detailed Date of Procedure 07/06/25 Pre-op Diagnosis epistaxsis Post-op Diagnosis Same Procedure Performed 1. Bilateral nasal endoscopy 2. Right-sided nasal cautery with bipolar Surgeon Mateo Payne MD Anesthesia General Indications See above Findings Right-sided large nest of telangiectatic vessels large vessel caudal septum. Cauterize all the way to the septum no residual bleeding. Nasal endoscopy did not show any other significant sources possible sources of bleeding. Description of Procedure Patient identified consent verified the preoperative holding area. Patient brought to the operating. Time-out performed. General anesthesia induced LMA secured. Patient prepped draped position procedure confirmed 2nd time-out performed. Nasal endoscopy performed bilaterally right-sided anterior large vessel large nest of vessels. No other source of bleeding. This was cauterized several times with bipolar electrocautery setting of 10. No bleeding mupirocin ointment was placed. Care the patient was then given Anesthesiology. I performed all dictated portions of the procedure no complications patient taken to PACU in good condition. Estimated Blood Loss 1 Drains No Packing No Pathology None sent Complications No immediate complications Condition Stable Disposition PACU [facility] Billing Surgery - Charge Forward: Surgery Billing
--- NOTE | 2025-07-06 14:42 | SUR.PHASEII ---
1442 PATIENTS PERSONAL AIFOTEC READS BLOOD SUGAR IS CURRENTLY 83.
== END 2025-07-06 15:12 | disposition home or self-care (01) ==
PROVIDERS: PCP Internal Medicine; Visit Provider Otolaryngology
PROC: (CPT 31238; principal; 2025-07-06 13:00)
DX: R04.0 Epistaxis (principal); E11.9 Type 2 diabetes mellitus without complications; E66.01 Morbid (severe) obesity due to excess calories; Z68.39 Body mass index [BMI] 39.0-39.9, adult
CPT/HCPCS: 31238; 82948; J0690; A9270; J2003; J2405; J2704; J3010; J7120

== ENCOUNTER 2025-07-21 00:54 | Day surgery (SDC) | payer MEDICARE, SELFPAY ==
[2025-07-02 10:38] VITALS: BMI 40.0
--- OUTSIDE RECORDS SUMMARY | 2025-07-21 00:56 | XMS_ITS | Clinical Summary ---
Author Organization [facility] Address [address] [place] [address] Care Team Providers Care Arc Welder Apprentice Name Role Phone Ramiro Newman MD Primary Care Provider [phone] Encounters Date Type Department Care Team Description 06/25/2025 11:12 AM MATRIX INSPECTOR - 06/25/2025 11:59 PM MATRIX INSPECTOR Hospital Encounter [facility] [address] [place] [address] Jimi Oscar MD Discharge Disposition: Home or Self Care (Routine Discharge) 06/25/2025 Travel from Last 3 Months Social History Tobacco Use Types Packs/Day Years Used Date Smoking Tobacco: Never Assessed Comments Unknown Sex and Gender Information Value Date Recorded Sex Assigned at Female 06/22/2025 9:23 AM MATRIX INSPECTOR Legal Sex Female 2:42 PM MATRIX INSPECTOR Gender Identity Not on file Sexual Orientation [...] this topic Meningococcal Vaccine Aged Out No lias tu eligible based on patient's age to complete this topic RSV Immunizations Under 20 Months Aged Out No longer eligible b ased on patient's age to complete this topic Procedures Procedure Name Priority Date/Time Associated Diagnosis Comments CT HEART SCREEN CALCIUM SCORE PROMO Routine 06/25/2025 11:26 AM MATRIX INSPECTOR Screening for ischemic heart disease (IHD) from Last 3 Months Results * CT HEART SCREEN CALCIUM SCORE PROMO (06/25/2025 11:26 AM MATRIX INSPECTOR) Anatomical Region Laterality Modality Chest Computed Tomogra phy 06/29/2025 7:02 AM MATRIX INSPECTOR Impressions 06/29/2025 7:02 AM MATRIX INSPECTOR =====IMPRESSION:===== Total Score: 30 Mild plaque, moderate risk, low likelihood of significant stenosis (<50%). Ordered By: JIMI OSCAR Interpreted By: Mahendra Martinez MD, 06/29/2025 7:02 AM Narrative 06/29/2025 7:02 AM MATRIX INSPECTOR [address] [address] EXAMINATION: Multislice Helical CT Coronary Calcium Scoring [...] Calcium score guidelines: Total Score* Calcium Plaque [place] *Risk *Probability of significant CAD 0 No [...] Procedure Note Mahendra Martinez MD - 06/29/2025 [place] [id number] EXAMINATION: Multislice Helical CT Coronary Calcium Scoring [...] Calcium score guidelines: Total Score* Calcium Plaque [place] *Risk *Probability ofsignificant CAD 0 No Plaque [...] Res ult from Last 3 Months Insurance [facility] MEDICARE [facility] Care Teams Arc Welder Apprentice Relationship Specialty Start Date End Date Ramiro Newman MD [address] [address] PCP - General INTERNAL MEDICINE 09/27/21
[2025-07-21 11:33] VITALS: BP 182/76; PULSE 97; RESP 20; TEMP 36.6; O2SAT 99
--- NOTE | 2025-07-21 11:34 | SUR.PREOP ---
Blood sugar per patients monitor 120
[2025-07-21] MEDS: LACTATED RINGERS 1,000 ML 150 ML IV CONT (11:46)
--- NOTE | 2025-07-21 12:31 | WPDANESEPPF ---
Anes - Initial Pre Proc Eval Procedure: Operation Date: 07/21/25 14:30 Proposed Procedures p EGD & Diagnostic Colonoscopy - Héctor Tierney MD Date/Time: 07/21/25 12:31 Surgeon: Héctor Tierney MD Pre Op Diagnosis: Anemia, unspecified Patient Data Age: 80 Gender: F Height: 1.7 m Weight: 115.1 kg Last Vital Signs Temp 97.8 F 07/21/25 11:33 Pulse 97 07/21/25 11:33 Resp 20 07/21/25 11:33 BP 182/76 H 07/21/25 11:33 Pulse Ox 99 07/21/25 11:33 O2 Del Method Room Air 07/21/25 11:33 Allergies Allergy/AdvReac Type Severity Reaction Status Date / Time erythromycin base Allergy Unknown RASH, Verified 07/06/25 12:57 SWELLING COVID-19 vaccine, AZD-1222 AdvReac Mild RASH, BUT Verified 07/06/25 12:57 (AstraZ STILL GETS COVID VACCINE Home Medications ?Medication ?Instructions ?Recorded ?Confirmed ?Type cholecalciferol (vitamin D3) 25 1,000 unit PO DAILY 10/09/19 07/21/25 History mcg (1,000 unit) capsule pen needle, diabetic 32 gauge x #200 ea 09/19/21 07/02/25 Rx 1/6 (NovoFine Plus) omega-3 fatty acids 1,000 mg 3,000 mg PO DAILY 04/07/22 07/21/25 History capsule flash glucose sensor (FreeStyle #6 ea 01/17/24 07/02/25 Rx Diaz 14 Day Sensor kit) lisinopril 20 2 tablet PO DAILY #180 tabs 02/09/25 07/21/25 Rx mg-hydrochlorothiazide 12.5 mg tablet metformin 1,000 mg tablet See Rx Instructions .Route 02/09/25 07/21/25 Rx .COMPLEX #225 tabs rosuvastatin 10 mg tablet See Rx Instructions .Route 02/09/25 07/21/25 Rx .COMPLEX #90 tabs ferrous sulfate 325 mg (65 mg 325 mg PO DAILY 06/24/25 07/02/25 History iron) tablet insulin lispro 200 unit/mL (3 mL) See Rx Instructions .Route 06/25/25 07/21/25 Rx subcutaneous pen (Humalog KwikPen .COMPLEX #6 mL U-200 Insulin) insulin degludec 200 unit/mL (3 70 unit subcut DAILY 07/02/25 07/21/25 History mL) subcutaneous pen (Tresiba FlexTouch U-200 insulin) Patient hx anesthesia problems: none Family hx anesthesia problems: none Results Review: All pre-operative results and documents have been reviewed as part of the pre-operative evaluation. [facility] Past Medical History Medical History (Updated 07/21/25 @ 13:12 by Vincenzo Webber Jr., CRNA) Essential (primary) hypertension Mixed hyperlipidemia Arthritis BMI greater than 40 UTI (urinary tract infection) Degenerative arthritis of knee, bilateral DJD (degenerative joint disease) Pedal edema Hospital discharge follow-up Breast asymmetry BMI 39.0-39.9,adult Bacteremia Follow up Abnormal finding of blood chemistry Osteoarthritis of right knee History of diabetes mellitus History of arthritis History of asthma Right knee pain History of COVID-19 Colon cancer screening COVID-19 Hearing loss Encounter for Medicare annual wellness exam Exposure to 2019 novel coronavirus Body mass index (BMI) 40.0-44.9, adult Gum disease Gingivitis Encounter for routine adult health examination without abnormal findings DM type 2 (diabetes mellitus, type 2) Obesity Surgical History Surgical History Hx of tonsillectomy History of hysterectomy History of cholecystectomy Family History Family History Sibling Family history of malignant neoplasm of breast in first degree relative Diabetes mellitus Mother Family history of malignant neoplasm of breast in first degree relative Diabetes mellitus Family history of diabetes mellitus in first degree relative Father Diabetes mellitus Family history of diabetes mellitus in first degree relative Breast cancer Sibling Breast cancer Other Family history of arthritis Family history of seizure disorder Hypertension Social History Social History Smoking status: Never smoker Second hand tobacco smoke exposure: No Alcohol intake: never Drinks per week: 0 Substance use type: does not use Lack of Transportation: No Lack of Food: Never True Current Housing: I Have Housing Concerned About Future Housing: No Difficulty Paying Gas/Electric Bills: No Difficulty Paying for Meds: No Currently Unemployed: No Education: High School Diploma/GED Difficulty w/ Childcare or Family Care: No Living arrangements: with family Additional living arrangements comments: BROTHER, SON, GRANDCHILDREN, GRANDDAUGHTER'S BOYFRIEND Occupation/Education: retired Gender identity (if verbalized by the patient): Female Spiritual care concerns: No Anes - Eval Final PreProcedure Day of Procedure 07/21/25 12:31 Patient weight: morbidly obese Heart: regular rate and rhythm Lungs: clear to auscultation Airway: Mallampati scale class III Neurological: alert and oriented Last oral intake: >/= 8 hours ASA classification: III Emergent: no Anesthetic plan: proceed Anesthesia type and monitoring: general GIVS and standard monitoring Results Review: All pre-operative results and documents have been reviewed as part of the pre-operative evaluation. Informed Consent: The patient's anesthetic plan and its attendant risks and benefits were discussed with the patient/family/POA. Questions were solicited and answers provided to the satisfaction of the patient/family/POA.
--- NOTE | 2025-07-21 13:10 | PM.HPGS ---
History of Present Illness History of Present Illness Consent: Risks, benefits, and alternatives have been discussed and questions answered. Patient agrees to proceed with procedure. Chief complaint: Anemia, unspecified Narrative: Cori Hus is a 80 year old female with anemia but denies overt gib, she has known epistaxis. Similar work up 2021 with negative egd and colonoscopy. Review of Systems Review of Systems: All systems reviewed & are unremarkable except as noted in HPI and below PMFSH Past Medical History Medical History BMI greater than 40 UTI (urinary tract infection) Degenerative arthritis of knee, bilateral DJD (degenerative joint disease) Pedal edema Hospital discharge follow-up Breast asymmetry BMI 39.0-39.9,adult Bacteremia Follow up Abnormal finding of blood chemistry Osteoarthritis of right knee History of diabetes mellitus History of arthritis History of asthma Right knee pain History of COVID-19 Colon cancer screening COVID-19 Hearing loss Encounter for Medicare annual wellness exam Exposure to 2019 novel coronavirus Body mass index (BMI) 40.0-44.9, adult Gum disease Gingivitis Encounter for routine adult health examination without abnormal findings DM type 2 (diabetes mellitus, type 2) Obesity Surgical History Surgical History Hx of tonsillectomy History of hysterectomy History of cholecystectomy Family History Family History Sibling Family history of malignant neoplasm of breast in first degree relative Diabetes mellitus Mother Family history of malignant neoplasm of breast in first degree relative Diabetes mellitus Family history of diabetes mellitus in first degree relative Father Diabetes mellitus Family history of diabetes mellitus in first degree relative Breast cancer Sibling Breast cancer Other Family history of arthritis Family history of seizure disorder Hypertension Social History Social History Smoking status: Never smoker Second hand tobacco smoke exposure: No Alcohol intake: never Drinks per week: 0 Substance use type: does not use Lack of Transportation: No Lack of Food: Never True Current Housing: I Have Housing Concerned About Future Housing: No Difficulty Paying Gas/Electric Bills: No Difficulty Paying for Meds: No Currently Unemployed: No Education: High School Diploma/GED Difficulty w/ Childcare or Family Care: No Living arrangements: with family Additional living arrangements comments: BROTHER, SON, GRANDCHILDREN, GRANDDAUGHTER'S BOYFRIEND Occupation/Education: retired Gender identity (if verbalized by the patient): Female Spiritual care concerns: No Meds Home Medications and Allergies Home Medications ?Medication ?Instructions ?Recorded ?Confirmed ?Type cholecalciferol (vitamin D3) 25 1,000 unit PO DAILY 10/09/19 07/21/25 History mcg (1,000 unit) capsule pen needle, diabetic 32 gauge x #200 ea 09/19/21 07/02/25 Rx 1/6 (NovoFine Plus) omega-3 fatty acids 1,000 mg 3,000 mg PO DAILY 04/07/22 07/21/25 History capsule flash glucose sensor (FreeStyle #6 ea 01/17/24 07/02/25 Rx Diaz 14 Day Sensor kit) lisinopril 20 2 tablet PO DAILY #180 tabs 02/09/25 07/21/25 Rx mg-hydrochlorothiazide 12.5 mg tablet metformin 1,000 mg tablet See Rx Instructions .Route 02/09/25 07/21/25 Rx .COMPLEX #225 tabs rosuvastatin 10 mg tablet See Rx Instructions .Route 02/09/25 07/21/25 Rx .COMPLEX #90 tabs ferrous sulfate 325 mg (65 mg 325 mg PO DAILY 06/24/25 07/02/25 History iron) tablet insulin lispro 200 unit/mL (3 mL) See Rx Instructions .Route 06/25/25 07/21/25 Rx subcutaneous pen (Humalog KwikPen .COMPLEX #6 mL U-200 Insulin) insulin degludec 200 unit/mL (3 70 unit subcut DAILY 07/02/25 07/21/25 History mL) subcutaneous pen (Tresiba FlexTouch U-200 insulin) Allergies Allergy/AdvReac Type Severity Reaction Status Date / Time erythromycin base Allergy Unknown RASH, Verified 07/06/25 12:57 SWELLING COVID-19 vaccine, AZD-1222 AdvReac Mild RASH, BUT Verified 07/06/25 12:57 ([facility]stra[facility] STILL GETS COVID VACCINE Vital Signs Vital Signs - 24 hr 07/21/25 11:33 Temperature 97.8 F Pulse Rate 97 Respiratory Rate 20 Blood Pressure 182/76 H Pulse Oximetry 99 Oxygen Delivery Room Air Exam Const: General: comfortable and no acute distress HENMT: Face/Nose/Sinus: Normal nares present Eyes: General: appearance normal, both eyes and all related structures Neck: Neck: no JVD Resp: Auscultation: clear to auscultation bilaterally Cardio: Rate: regular rate Rhythm: regular rhythm GI: Inspection: non-distended GI Palp: Yes Soft to palpation Skin: General skin exam: normal color Extrem: General: normal to inspection Psych: Mental Status: mental status grossly normal Assessment and Plan Assessment and plan (1) MARIO (iron deficiency anemia): Qualifiers: Iron deficiency anemia type: unspecified iron deficiency Qualified Code(s): D50.9 - Iron deficiency anemia, unspecified Code(s): D50.9 - Iron deficiency anemia, unspecified Status: Acute Assessment and Plan: egd and colonoscopy (2) Epistaxis: Code(s): R04.0 - Epistaxis Status: Acute Assessment and Plan: already treated by ent
--- NOTE | 2025-07-21 13:24 | ECG_ITS ---
Test Date: 2025-07-21 13:29:43 Measurements Intervals [place] Rate: 98 P: 0 MS: 0 QRS: -27 QRSD: 84 T: -1 QT: 358 QTc: 457 Interpretive Statements SINUS RHYTHM WITH ATRIAL PREMATURE COMPLEXES DELAYED PRECORDIAL R/S TRANSITION CONSIDER INFERIOR INFARCT, AGE INDETERMINATE BASELINE ARTIFACT- I, II, III, AVR, AVL, AVF, V1 ABNORMAL ECG No previous ECG available for comparison Electronically Signed On 07-21-2025 13:33:24 STEM CRUSHER by Jevon Cabral D.O.
--- NOTE | 2025-07-21 13:39 | S_PTH ---
PATIENT: Cori Hsu LOC: [facility]#:[id number] AGE/SX: 80/F ROOM: RE07/21/[address]: Héctor Tierney MD : 1945 BED: DIS: 07/21/2025 SPEC #: [id number] RECD: 07/21/25 13:51 STATUS: BENJAMÍN NARVAEZ #: [id number] VISHNU: 07/21/25 13:[address]: Héctor Tierney DEPT: [facility] Surgical RECD BY: Marco Muhammad ENTERED: 07/21/25 13:52 SP TYPE: Surgical OTHR DR: Ramiro Newman MD Tissues: A - Gastric Biopsy B - Colon Polypectomy Procedures: Hematoxylin and Eosin Stain Gross and Microscopic Level 4
--- NOTE | 2025-07-21 13:41 | SUR.OPER ---
EGD end 1336 Colonoscopy start 1341
[2025-07-21 13:54] VITALS: BP 93/45; PULSE 77; RESP 20; O2SAT 100
[2025-07-21 14:04] VITALS: BP 118/56; PULSE 70; RESP 20; O2SAT 100
[2025-07-21 14:14] VITALS: BP 129/59; PULSE 77; RESP 18; O2SAT 100
== END 2025-07-21 14:40 | disposition home or self-care (01) ==
PROVIDERS: PCP Internal Medicine; Referring Provider Internal Medicine; Visit Provider Internal Medicine Gastroenterology
PROC: 0DJ08ZZ Inspection of Upper Intestinal Tract, Via Natural or Artificial Opening Endoscopic (ICD-10-PCS; CPT 45378; principal; 2025-07-21 14:30)
DX: D50.9 Iron deficiency anemia, unspecified (principal); K51.40 Inflammatory polyps of colon without complications; K57.30 Diverticulosis of large intestine without perforation or abscess without bleeding; K64.8 Other hemorrhoids; K29.70 Gastritis, unspecified, without bleeding; E11.9 Type 2 diabetes mellitus without complications
CPT/HCPCS: 45385; 43239; 82948; 88305; 93005; J2003; J2704; J7120

== ENCOUNTER 2025-07-30 08:09 | Outpatient (CLI) | payer MEDICARE, SELFPAY ==
--- NOTE | ~2025-07-30 | DEXA_ITS ---
Bone Density Report Name: PHAM STARK Age: 80 Sex: Female Ethnicity: White Date of : 1945 Indication: postmenopausal; screening for osteoporosis; height loss; prior fracture; hysterectomy; rheumatoid arthritis; Referring Provider: MAYA LOWE Study: Bone densitometry was performed. Exam Date: July 30, 2025 Accession number: [id number] Bone Density: Region BMD T-score Z-score Classification AP Spine(L2, L4) 0.908 -1.5 1.2 Osteopenia Femoral Neck (Left) 0.491 -3.2 -0.9 Osteoporosis Total Hip (Left) 0.823 -1.0 1.1 Normal Femoral Neck (Right) 0.627 -2.0 0.3 Osteopenia Total Hip (Right) 0.763 -1.5 0.6 Osteopenia Total Hip Mean 0.793 -1.3 0.9 Osteopenia World Health Organization criteria for BMD impression classify patients as: Normal (T-score at or above -1.0), Osteopenia (T-score between -1.0 and -2.5), or Osteoporosis (T-score at or below -2.5). 10-year Fracture Risk: FRAX not reported because: Some T-score for Spine Total or Hip Total or Femoral Neck at or below -2.5 Clinical Information Provided by Patient: Has had a low trauma fracture Has rheumatoid arthritis Has used the following medications: Vitamin D Has the following medical conditions: Hysterectomy, type 2 DM Patient maximum height was 67 Menopause Age: 41 No regular weight bearing exercise Drinks caffeinated beverages Onset of menses at age 16 Number of children 3 Impression: The patient has established osteoporosis, based on the Left Femoral Neck T-score and the existence of a prior fracture. The patient has risk factors, including: previous fracture. Discussion: HIGH RISK OF FRACTURE. BONE DENSITY IS UNDESIRABLY LOW AT ONE OR MORE SKELETAL SITES, CONSISTENT WITH POSTMENOPAUSAL OSTEOPOROSIS. This patient's lowest T-score, in a patient who has previously fractured, meets the World Health Organization's (WHO) criteria for severe osteoporosis. In untreated patients, the risk of osteoporotic fracture increases approximately two-fold for each 1.0 SD decrease in T-score. Low bone density is not the only risk factor for fracture; also consider factors such as patient's age, frailty or poor health, risk of falling, risk of injury, previous osteoporotic fracture, family history of osteoporosis, cigarette smoking, low body weight, etc. Not everyone with low bone mineral density has osteoporosis; osteomalacia and other metabolic bone disorders should also be considered. Patients who have osteoporosis should be evaluated for specific diseases and conditions (secondary causes) that may cause or contribute to bone loss. The [place] [employer]ocr[employer] (AACE) and National Osteoporosis Foundation (NOF) recommend pharmacologic intervention for all postmenopausal women whose T-score is in this range. The patient should follow a healthful lifestyle (good nutrition with adequate calcium and vitamin D, and appropriate weight-bearing exercise). Follow-Up: Consider a repeat BMD and Vertebral Fracture Assessment (VFA) exam in 2 years or sooner if medically necessary, to reassess this patient's status. Reported by: PRAVEENA on 08/03/2025 7:01:00 AM. Reviewed, dictated and finalized at location A.
== END 2025-07-30 08:10 | disposition home or self-care (01) ==
LOC: MICIMG 08:10
PROVIDERS: PCP Internal Medicine; Visit Provider Internal Medicine
DX: M81.0 Age-related osteoporosis without current pathological fracture (principal); M85.89 Other specified disorders of bone density and structure, multiple sites; Z78.0 Asymptomatic menopausal state; Z13.820 Encounter for screening for osteoporosis
CPT/HCPCS: 77080